=== PATIENT | female | born 1955 | race Caucasian/White ===

== ENCOUNTER → 2017-04-18 | Outpatient (CLI) | payer BC ==
[~2017-04-18] MED LIST: ESTRATEST; GLUCOSAMINE; MULT-506 PO; OMEG10007 PO; THYROXINE
--- NOTE | 2017-04-18 16:15 | MAMMOGRAPHY REPORT ---
BILATERAL DIGITAL SCREENING MAMMOGRAM WITH CAD: 04/18/2017 CLINICAL HISTORY: Routine screening examination. TECHNIQUE: Bilateral CC, MLO and repeat left CC views were obtained. Current study was also evaluate d with a Computer Aided Detection (CAD) system. COMPARISON: Comparison is made to exams dated: 03/14/2016 mammogram, 03/10/2015 mammogram, 01/27/2014 ma mmogram, 01/24/2013 mammogram, 01/05/2012 mammogram, and 01/04/2011 mammogram - [facility]ter. BREAST COMPOSITION: There are scattered areas of fibroglandular density in both breasts. FINDINGS: There is a 6.9 mm focal asymmetry in the central right breast, and a 6.6 mm focal asymmetr y in the upper outer anterior left breast, for which additional spot compression tomosynthesis views and possibly ultrasound are recommended. No other suspicious mass, architectural distortion or cluster of microcalcifications is seen bilatera lly. IMPRESSION: ACR BI-RADS CATEGORY 0: INCOMPLETE EVALUATION: NEED ADDITIONAL IMAGING EVALUATION The focal asymmetries in each breast need additional imaging evaluation. The patient will be called to schedule an appointment. Approximately 10% of breast cancers are not detected with mammography. A negative mammographic report should not delay biopsy if a clinically suggestive mass is present. Jil Zhou M.D. ay/:04/18/2017 15:56:51 Industrial Analyst: Gurwinder SHEPPARD)([place]), [facility] letter sent: Addl Imaging 0 BI-RADS Code: ACR BI-RADS Category 0: Incomplete Evaluation: Need Additional Imaging Evaluation
== END | disposition home or self-care (01) ==
LOC: C.MAMM 10:22
PROVIDERS: ATTEND Obstetrics & Gynecology
DX: R92.8 Other abnormal and inconclusive findings on diagnostic imaging of breast (principal); N64.89 Other specified disorders of breast

== ENCOUNTER → 2017-04-24 | Outpatient (CLI) | payer BC ==
--- NOTE | 2017-04-25 08:02 | MAMMOGRAPHY REPORT ---
BILATERAL DIGITAL DIAGNOSTIC MAMMOGRAM TOMOSYNTHESIS AND TARGETED BILATERAL ULTRASOUND: 04/24/2017 CLINICAL HISTORY: 62-year-old woman called back from screening mammography for bilateral asymmetries. TECHNIQUE: Bilateral spot compression CC and MLO 2-D digital and tomosynthesis images were obtained. COMPARISON: Comparison is made to exams dated: 04/18/2017 mammogram, 03/14/2016 mammogram, 03/10/2015 rhina mogram, 01/27/2014 mammogram, 01/24/2013 mammogram, and 01/05/2012 mammogram - [facility]. BREAST COMPOSITION: There are scattered areas of fibroglandular density in both breasts. FINDINGS: Spot compression CC views including tomosynthesis images demonstrate persistence of a 6.3 x 5.5 x 3.4 mm circumscribed and lobulated mass in the approximate 6:00 middle one third of the right breast. No associated architectural distortion or clustered microcalcification. There are similar appearing lobulated and circumscribed masses in the left breast. The one identified on screening rhina mography is seen in the anterior upper outer aspect of the breast measuring 6.7 x 7.5 x 5.9 mm. A se cond is now seen in the 12:30 middle one third of the left breast measuring 6.0 x 3.6 x 6.0 mm. No a ssociated architectural distortion or clustered microcalcification. Further evaluation with ultrasou nd was performed. Targeted ultrasound was performed in both breasts. In the 12:30 left breast, 1 cm from the nipple, t here is a parallel hypoechoic to anechoic cystic appearing mass measuring 9.3 x 2.5 x 5.8 mm. A seco nd more superficial cluster of microcysts versus complicated cyst is identified in the 12:00 periareo lar left breast measuring 7.0 x 2.0 x 5.1 mm. In the right 5:00 periareolar breast, there is another mildly complicated cyst versus microcyst cluster measuring 4.3 x 2.3 x 5.1 mm. IMPRESSION: ACR BI-RADS CATEGORY 2: BENIGN, TARGETED ULTRASOUND ACR BI-RADS CATEGORY 2: BENIGN There are bilateral cysts versus microcyst clusters, 2 of which correlate with the mammographic asymm etries described on the screening mammogram report. These findings are compatible with benign fibroc ystic changes. There is no mammographic or targeted sonographic evidence of malignancy. Return to an nual mammogram screening schedule is recommended. The patient has been verbally notified of the resu lts. Approximately 10% of breast cancers are not detected with mammography. A negative mammographic report should not delay biopsy if a clinically suggestive mass is present. Jil Zhou M.D. ay/:04/24/2017 13:28:06 Underwriting Director: Dianna De Leon, [facility] letter sent: Normal 1/2 BI-RADS Code: ACR BI-RADS Category 2: Benign Ultrasound BI-RADS: ACR BI-RADS Category 2: Benign
== END | disposition home or self-care (01) ==
LOC: C.MAMM 08:39
PROVIDERS: ATTEND Obstetrics & Gynecology
DX: N64.89 Other specified disorders of breast (principal)

== ENCOUNTER → 2018-07-03 | Outpatient (CLI) | payer BC ==
--- NOTE | 2018-07-04 13:39 | MAMMOGRAPHY REPORT ---
BILATERAL DIGITAL SCREENING MAMMOGRAM TOMOSYNTHESIS WITH CAD: 07/03/2018 CLINICAL HISTORY: Routine screening. Patient has no complaints. TECHNIQUE: The study was acquired using full field digital technology and interpreted from soft copy. Breast tomosynthesis in addition to standard 2D mammography was performed. Current study was also ev aluated with a Computer Aided Detection (CAD) system. COMPARISON: Comparison is made to exams dated: 04/24/2017 mammogram, 04/18/2017 mammogram, 03/14/2016 rhina mogram, 03/10/2015 mammogram, 01/27/2014 mammogram, and 01/24/2013 mammogram - [facility]. BREAST COMPOSITION: There are scattered areas of fibroglandular density in both breasts. FINDINGS: There is decreased asymmetry along the posterior nipple line on the right CC view but stabl e nodular asymmetry in the medial anterior right breast. No suspicious mass, architectural distortion or cluster of microcalcifications is seen. IMPRESSION: ACR BI-RADS CATEGORY 1: NEGATIVE There is no mammographic evidence of malignancy. A 1 year screening mammogram is recommended.( [id number]) The patient will receive written notification of the results. Some breast cancers are not detected with mammography. A negative mammographic report should not catherine y biopsy if a clinically suggestive mass is present. Jil Zhou M.D. ay/:07/03/2018 15:51:43 Amf Mechanic: Dianna De Leon, [facility] letter sent: Normal 1/2 BI-RADS Code: ACR BI-RADS Category 1: Negative
== END | disposition home or self-care (01) ==
LOC: C.MAMM 14:00
PROVIDERS: ATTEND Obstetrics & Gynecology
DX: Z12.31 Encounter for screening mammogram for malignant neoplasm of breast (principal)